=== PATIENT | female | born 1990 | race Caucasian/White ===

== ENCOUNTER 2020-01-24 18:23 | Outpatient (CLI) | payer BC, MEDICAID ==
[2020-01-24 19:08] LABS: APPEARANCE,URINE SLIGHTLY-CLOUDY; BILIRUBIN,URINE NEGATIVE (NEGATIVE); COLOR,URINE YELLOW; GLUCOSE, URINE NEGATIVE (NEGATIVE); KETONES,URINE NEGATIVE (NEGATIVE); LEUKOCYTE ESTERASE,URINE SMALL (NEGATIVE); NITRITE,URINE NEGATIVE (NEGATIVE); PROTEIN,URINE NEGATIVE (NEGATIVE); URINE SPECIFIC GRAVITY 1.023
[2020-01-24 19:44] LABS: URINE AMPHETAMINES SCREEN NEGATIVE; URINE BARBITURATES SCREEN NEGATIVE; URINE BENZODIAZEPINES SCREEN NEGATIVE; URINE COCAINE SCREEN NEGATIVE; URINE MARIJUANA (THC) SCREEN NEGATIVE; URINE METHADONE SCREEN NEGATIVE; URINE PHENCYCLIDINE SCREEN NEGATIVE
== END 2020-01-24 19:30 | disposition home or self-care (01) ==
LOC: LC 18:23
PROVIDERS: ATTEND Obstetrics & Gynecology
DX: O99.89 Other specified diseases and conditions complicating pregnancy, childbirth and the puerperium (principal); M54.9 Dorsalgia, unspecified; Z3A.35 35 weeks gestation of pregnancy
CPT/HCPCS: 59025; 80307; 81001

== ENCOUNTER 2020-02-21 16:59 | Inpatient (IN) | payer BC, MEDICAID ==
[2020-02-21 18:06] LABS: APPEARANCE,URINE SLIGHTLY-CLOUDY; BILIRUBIN,URINE NEGATIVE (NEGATIVE); COLOR,URINE YELLOW; GLUCOSE, URINE NEGATIVE (NEGATIVE); KETONES,URINE 20 mg/dL (NEGATIVE); LEUKOCYTE ESTERASE,URINE TRACE (NEGATIVE); NITRITE,URINE NEGATIVE (NEGATIVE); PROTEIN,URINE NEGATIVE (NEGATIVE); URINE SPECIFIC GRAVITY 1.013; UROBILINOGEN,URINE NEGATIVE mg/dL (<2.0)
[2020-02-21 18:38] LABS: URINE AMPHETAMINES SCREEN NEGATIVE; URINE BARBITURATES SCREEN NEGATIVE; URINE BENZODIAZEPINES SCREEN NEGATIVE; URINE COCAINE SCREEN NEGATIVE; URINE MARIJUANA (THC) SCREEN NEGATIVE; URINE METHADONE SCREEN NEGATIVE; URINE PHENCYCLIDINE SCREEN NEGATIVE
[2020-02-21] MEDS ORDERED: RINGERS SOLUTION,LACTATED 1,000 ML IV ONE (19:22)
[2020-02-21] MEDS ORDERED: PENICILLIN G POTASSIUM 5,000,000 UNIT in DEXTROSE 5%-WATER 100 ML IV ONE (19:22)
[2020-02-21] MEDS ORDERED: RINGERS SOLUTION,LACTATED 1,000 ML IV PRN (19:22)
[2020-02-21 19:49] LABS: ABSOLUTE BASOPHILS # (AUTO) 0.1 10^3/uL (0.0-0.2); ABSOLUTE LYMPHOCYTES (AUTO) 2.6 10^3/uL (0.5-4.7); ABSOLUTE MONOCYTES (AUTO) 0.7 10^3/uL (0.1-1.4); ABSOLUTE NEUT (AUTO) 7.4 10^3/uL (1.7-8.2); BASOPHILS % (AUTO) 0.5 % (0-2); EOSINOPHILS % (AUTO) 0.4 % (0-6); HEMATOCRIT 29.1 % (36.0-47.0); HEMOGLOBIN 9.8 g/dL (12.0-15.5); LYMPHOCYTES % (AUTO) 24.1 % (13-45); MEAN CORPUSCULAR HEMOGLOBIN 27.8 pg (27.0-33.4); MEAN CORPUSCULAR HGB CONC 33.7 g/dL (32.0-36.0); MEAN CORPUSCULAR VOLUME 83 fl (80-97); MONOCYTES % (AUTO) 6.2 % (3-13); PLATELET COUNT 211 10^3/uL (150-450); RED BLOOD COUNT 3.53 10^6/uL (3.72-5.28); SEGMENTED NEUTROPHILS % (AUTO) 68.8 % (42-78); TOTAL CELLS COUNTED % (AUTO) 100 %; WHITE BLOOD COUNT 10.7 10^3/uL (4.0-10.5)
[2020-02-21] MEDS ORDERED: LIDOCAINE 1% INJ-PF (10 MG/ML) 30 ML SDV ONE (20:16)
[2020-02-21] MEDS ORDERED: OXYTOCIN 10 UNIT/ML VIAL ONE (20:16)
[2020-02-21] MEDS ORDERED: MISOPROSTOL 0.2 MG TABLET ONE (20:16)
[2020-02-21] MEDS ORDERED: OXYTOCIN/0.9 % SODIUM CHLORIDE 30 UNIT/500 ML RTUINJ ONE (20:16)
[2020-02-21] MEDS ORDERED: PENICILLIN G-K 5 MILLION UNIT VIAL ONE (20:17)
--- NOTE | 2020-02-21 20:31 | Admission Physical ---
Datetime Report Generated by CPN: 02/21/2020 20:30 CURRENT ADMISSION Chief Complaint: Suspected Ruptured Membranes Indication for Induction: Not Applicable Admit Impression : Term, Intrauterine Admit Plan: Admit to Unit ALLERGIES Medication Allergies: No Medication Allergies: No Known Allergies (02/21/2020) Latex: No Latex Allergies Food Allergies: none Environmental Allergies: seasonal OBSTETRICAL HISTORY EDC: 02/27/2020 00:00 : 1 Para: 0 Term: 0 : 0 SAB: 0 IAB: 0 Ectopic: 0 Livin Cesareans: 0 VBACs: 0 Multiple Births: 0 Gestational Diabetes: No Rh Sensitization: No Incompetent Cervix: No DEBBY: No Infertility: No ART Treatment: No Uterine Anomaly: No IUGR: No Hx Previous C/S: No Macrosomia: No Hx Loss/Stillborn: No PIH: No Hx : No Placenta Previa/Abruption: No Depression/PP Depression: No PTL/PROM: No Post Hemorrhage: No Current Procedures: Ultrasound Obstetrical History Comments: G1- current SEE RECORDS Alcohol: No Marijuana : No Cocaine: No Other Illicit Drugs: No Cigarettes: Never Smoker. [id number] MEDICAL HISTORY Diabetes: No Blood Transfusion: No Pulmonary Disease (Asthma, TB): No Breast Disease: No Hypertension: No Medical Anthropologist Surgery: No Heart Disease: No Hosp/Surgery: Yes Autoimmune Disorder: No Anesthetic Complications: No Kidney Disease: Yes Abnormal Pap Smear: Yes Neuro/Epilepsy: No Psychiatric Disorders: No Other Medical Diseases: No Hepatitis/Liver Disease: No Significant Family History: No Varicosities/Phlebitis: No Trauma/Violence : No Thyroid Dysfunction: No Medical History Comments: appendix in 2009 and tonsils and adenoids at 6 y/o. ASCUS INFECTIOUS HISTORY Gonorrhea: No Genital Herpes: No Chlamydia: No Tuberculosis: No Syphilis: No Hepatitis: No HIV/AIDS Exposure: No Rash or Viral Illness: No HPV: Yes PHYSICAL EXAM General: Normal HEENT: Normal Neurologic: Normal Thyroid: Normal Heart: Normal Lungs: Normal Breast: Deferred Back: Normal Abdomen: Normal Genitourinary Exam: Normal Extremities: Normal DTRs: Normal Pelvic Type: Adequate FETUS A EGA: 39.1 PLANS FOR LABOR AND DELIVERY Labor and Delivery: None Pain Management: Medications; Epidural Feeding Preference: Breast Benefit of Breast Feed Discussed: Yes Circumcision: Yes INFORMED CONSENT Signature: with User ID: [email or web address]
[2020-02-22] MEDS ORDERED: PENICILLIN G-K 5 MILLION UNIT VIAL ONE ×2 (00:15→04:34)
[2020-02-22] MEDS: PENICILLIN G POTASSIUM 2,500,000 UNIT in DEXTROSE 5%-WATER 50 ML IV SCH ×5 (00:23→20:23)
[2020-02-22] MEDS ORDERED: OXYTOCIN/0.9 % SODIUM CHLORIDE 30 UNIT/500 ML RTUINJ IV PRN ×2 (04:54→15:42)
[2020-02-22] MEDS ORDERED: PROMETHAZINE HCL INJ 25 MG/1 ML VIAL ONE (07:34)
[2020-02-22] MEDS ORDERED: NALBUPHINE HCL INJ 10 MG/1 ML AMPULE ONE (07:34)
[2020-02-22] MEDS ORDERED: NALBUPHINE HCL INJ 10 MG/1 ML AMPULE INJ ONE (08:30)
[2020-02-22] MEDS ORDERED: PROMETHAZINE HCL INJ 25 MG/1 ML VIAL IV ONE (08:30)
[2020-02-22] MEDS ORDERED: EPHEDRINE SULFATE INJ 50 MG/1 ML AMPULE ONE (10:37)
--- NOTE | 2020-02-22 10:37 | L&D Progress Notes ---
PROGRESS NOTES Datetime Report Generated by CPN: 02/22/2020 10:37 PROGRESS NOTE Impression: Normal Progression of Labor Procedures: Sterile Vag Exam Plan: Continue Present Management; Induction; Cervical Ripening Informed Consent Obtained: Vaginal Delivery; Risks, Benefits and Alternatives Discussed Vital Signs : Reviewed Comment: cvx 4/60/-2. SROM at 1700 - clear with blood tinged fluid. PCN for GBS already. However, now 18 hours ruptured and will add gentamycin. Pt desires epidural. VAGINAL EXAM Dilatation: 4 Effacement: 60 Station: -2 LAST VAGINAL EXAM-NURSING Nursing Exam Dilitation: 1.0 Nursing Exam Effacement: 75 Nursing Exam Station: -3 MEMBRANES Membranes: Ruptured Amniotic Fluid Color: Clear FETUS A FHR - Baseline: 120 Monitoring: External US Variability: Moderate 6-25bpm Accelerations: 15X15 Decelerations: None FHR Category: Category I SIGNATURE SIGNATURE: [id number];[id number] Signature: with User ID: [email or web address]
[2020-02-22] MEDS ORDERED: ROPIVACAINE HCL 0.2% INJ/PF (2 MG/ML) 20 ML SDV ONE (10:38)
[2020-02-22] MEDS ORDERED: FENTANYL/BUPIVACAINE/NS/PF 300 MCG/150 ML RTUINJ EPI ONE (10:38)
[2020-02-22] MEDS ORDERED: GENTAMICIN SULFATE INJ 80 MG/2 ML VIAL IV ONE (10:47)
[2020-02-22] MEDS ORDERED: GENTAMICIN SULFATE 160 MG in DEXTROSE 5%-WATER 100 ML IV ONE (12:00)
[2020-02-22] MEDS ORDERED: PROMETHAZINE HCL 25 MG TABLET PO PRN (15:42)
[2020-02-22] MEDS ORDERED: ACETAMINOPHEN WITH CODEINE #3 TABLET PO PRN ×2 (15:42)
[2020-02-22] MEDS ORDERED: ACETAMINOPHEN 650 MG SUPP.RECT PR PRN (15:42)
[2020-02-22] MEDS ORDERED: PROMETHAZINE HCL 25 MG SUPP.RECT PR PRN (15:42)
[2020-02-22] MEDS ORDERED: PROMETHAZINE HCL INJ 25 MG/1 ML VIAL IV PRN (15:42)
[2020-02-22] MEDS ORDERED: DIPHENHYDRAMINE HCL 25 MG CAPSULE PO PRN (15:42)
[2020-02-22] MEDS ORDERED: MAGNESIUM HYDROXIDE SUSP 30 ML UDCUP PO PRN (15:42)
[2020-02-22] MEDS ORDERED: ZOLPIDEM TARTRATE 5 MG TABLET PO PRN (15:42)
[2020-02-22] MEDS ORDERED: DIBUCAINE 1% OINTMENT 28 GM TP PRN (15:42)
[2020-02-22] MEDS ORDERED: NA PHOS,M-B/NA PHOS,DI-BA (ADULT) 133 ML ENEMA PR PRN (15:42)
[2020-02-22] MEDS ORDERED: DIPH/PERTUSS(ACELL)/TETANUS VAC/PF 0.5 ML SYR (>=10YO) IM PRN (15:42)
[2020-02-22] MEDS ORDERED: MEASLES,MUMPS&RUBELLA VACC/PF 0.5 ML VIAL SUBCUT PRN (15:42)
[2020-02-22] MEDS ORDERED: GLYCERIN/WITCH HAZEL LEAF 1 EACH MED..WIPE TP PRN (15:42)
[2020-02-22] MEDS ORDERED: PSEUDOEPHEDRINE HCL 30 MG TABLET PO PRN (15:42)
[2020-02-22 16:10] LABS: HEMATOCRIT 28.9 % (36.0-47.0); HEMOGLOBIN 9.7 g/dL (12.0-15.5); MEAN CORPUSCULAR HEMOGLOBIN 27.4 pg (27.0-33.4); MEAN CORPUSCULAR HGB CONC 33.4 g/dL (32.0-36.0); MEAN CORPUSCULAR VOLUME 82 fl (80-97); PLATELET COUNT 214 10^3/uL (150-450); RED BLOOD COUNT 3.53 10^6/uL (3.72-5.28); RED CELL DISTRIBUTION WIDTH 14.9 % (11.5-14.0); WHITE BLOOD COUNT 17.6 10^3/uL (4.0-10.5)
[2020-02-22 16:33] LABS: ALBUMIN 3.3 g/dL (3.5-5.0); ALKALINE PHOSPHATASE 222 U/L (38-126); ANION GAP 8 (5-19); ASPARTATE AMINO TRANSFERASE 23 U/L (14-36); BILIRUBIN,DIRECT 0.4 mg/dL (0.0-0.4); BILIRUBIN,TOTAL 0.9 mg/dL (0.2-1.3); BLOOD UREA NITROGEN 7 mg/dL (7-20); CARBON DIOXIDE 21 mmol/L (22-30); CHLORIDE 107 mmol/L (98-107); GLUCOSE 78 mg/dL (75-110); TOTAL PROTEIN 5.6 g/dL (6.3-8.2)
--- NOTE | 2020-02-22 17:45 | Delivery Summary ---
Del Sum A-C Datetime Report Generated by CPN: 02/22/2020 17:45 DELIVERY PERSONNEL DELIVERY PERSONNEL: [id number] Delivery Doctor:: Jessica Chan CNM Labor and Delivery Nurse:: Jania Mckeon RNwater supervisor Nurse:: ROJELIO Mi Nursery Nurse:: xu Avila RN Nursery Nurse:: ALBERT Spangler Tech/EQUIPMENT OPERATOR/LABORER/SUPERVISOR: Marine Mclaughlin, RESIDENTIAL CARE OFFICER MATERNAL INFORMATION Delivery Anesthesia: Epidural Medications After Delivery: Pitocin 30 Units in 500ml NS/D5W Delivery QBL: 200 Maternal Complications: Prolonged Labor > 20 Hrs Provider Comments: SVDVM over intact perineum with double nuchal cord, unable to reduce, somersaulted through and then reduced after delivery. vigorous, to mothers abd for NRP. Cord clamped x 2 cut per FOB. Cord blood collected. Placenta intact via [place] with trailing membranes. Repair as above. Bleeding stable. QBL 200. LABOR SUMMARY EDC: 02/27/2020 00:00 No. Babies in Womb: 1 Attempted: No Labor Anesthesia: Epidural LABOR INFORMATION Reason for Induction: Not Applicable Onset of Labor: 02/22/2020 10:00 Complete Dilatation: 02/22/2020 13:54 Oxytocin: Augmentation Group B Beta Strep: Positive Antibiotics # of Doses: 5 Antibiotics Time of Last Dose: 02/22/2020 13:00 Name of Antibiotic Given: PCN Steroids Given: None Reason Steroids Not Administered: Not Applicable MEMBRANES Membranes Rupture Method: Spontaneous Rupture of Membranes: 02/21/2020 16:50 Length of Rupture (hr): 21.58 Amniotic Fluid Color: Clear Amniotic Fluid Amount: Small Amniotic Fluid Odor: Normal STAGES OF LABOR Stage 1 hr: 3 Stage 1 min: 54 Stage 2 hr: 0 Stage 2 min: 31 Stage 3 hr: 0 Stage 3 min: 11 Total Time in Labor hr: 4 Total Time in Labor min: 36 VAGINAL DELIVERY Episiotomy: None Laceration #1: Vaginal Laceration Extension #1: First Degree Other Laceration: Rt Labia 1st degree Laceration Repair: Yes Laceration Repair Note: 2.0 Chromic used for repair lidocaine 1% 1 interrupted stitch in vaginal area running suture up inner Rt labia CSECTION DELIVERY Primary Indication: N/A Secondary Indication: N/A CSection Incidence: N/A Labor: N/A Elective: N/A CSection Incision: N/A BABY A INFORMATION Infant Delivery Date/Time: 02/22/2020 14:25 Method of Delivery: Vaginal Nurse Controlled Delivery: No Born in Route : No : N/A Forceps: N/A Vacuum Extraction: N/A Shoulder Dystocia : No PRESENTATION/POSITION BABY A Presentation: Cephalic Cephalic Presentation: Vertex Vertex Position: Left Occipital Anterior Breech Presentation: N/A PLACENTA INFORMATION BABY A Placenta Delivery Time : 02/22/2020 14:36 Placenta Method of Delivery: Spontaneous Placenta Status: Delivered SCORES BABY A Heart Rate 1 min: >100 bpm Resp Effort 1 min: Good Cry Reflex Irritability 1 min: Cough or Sneeze or Pulls Away Muscle Tone 1 min: Active Motion Color 1 min: Body [place], Extremities Blue Resuscitation Effort 1 min: Tactile Stimulation SCORE 1 MIN: 9 Heart Rate 5 min: >100 bpm Resp Effort 5 min: Good Cry Reflex Irritability 5 min: Cough or Sneeze or Pulls Away Muscle Tone 5 min: Active Motion Color 5 min: Body [place], Extremities Blue Resuscitation Effort 5 min: Tactile Stimulation SCORE 5 MIN: 9 INFANT INFORMATION BABY A Gestational Age at Delivery: 39.2 Gestational Status: Full Term- 39- 40.6 Weeks Infant Outcome : Liveborn Infant Condition : Stable Sex: Male IDENTIFICATION BABY A Infant Verification Date/Time: 02/22/2020 14:46 ID Band Number: [id number] Mother's Name Verified: Yes Infant RN Verifying : MMobley,RN Additional Verifying Personnel: [facility],ST WEIGHT/LENGTH BABY A Infant Birthweight (gm): 3080 Infant Weight (lb): 6 Infant Weight (oz): 13 Length (in): 20.00 Length (cm): 50.80 CORD INFORMATION BABY A No. Cord Vessels: 3 Nuchal Cord : Around Neck x2, Tight Cord Blood Taken: Yes-For Eval (Mom's Blood Type - or O+) Infant Suction: Mouth; Nose ASSESSMENT BABY A Skin to Skin: Yes Infant Care By: RGrover,RN Transferred To: Remains with Mother BABY B INFORMATION : N/A SIGNATURES Assignment: Suly Salgado MD Signature: with User ID: [email or web address] : with User ID: [email or web address] : I was personally available for consultation and serving as supervising physician for the MLP.
--- NOTE | 2020-02-22 17:45 | Birth Certificate Data ---
Cert Data Datetime Report Generated by CPMichael: 02/22/2020 17:45 CERTIFICATE DATA 47a. Care: Yes (01/24/2020 18:36:Elana Renee RN) 47b. Date of First Visit: 08/16/2019 00:00 (01/24/2020 18:36:Elana Renee RN) 47c. Date of Last Visit: 02/21/2020 00:00 (01/24/2020 18:36:Elana Renee RN) 47d. Number of Visits: 9 (01/24/2020 18:36:Elana Renee RN) 48a. Number of Prev Live Births: 0 (01/24/2020 18:36:Elana Renee RN) 48b. Now Livin (01/24/2020 18:36:Jania Mckeon RN) 48c. Live Births Now : 0 (01/24/2020 18:36:QS system process) 48e. Losses: 0 (01/24/2020 18:36:Elana Renee RN) RISK FACTORS IN THIS 49a. Diabetes: No (01/24/2020 18:36:Macho Rangel RN) 49b. Hypertension: No (01/24/2020 18:36:Macho Rangel RN) 49c. Previous Births: 0 (01/24/2020 18:36:Jania Mckeon RN) 49d. Stillborns: No (01/24/2020 18:36:Macho Rangel RN) 49d. IUGR: No (01/24/2020 18:36:Macho Rangel RN) 49e. Infertility Treatment: No (01/24/2020 18:36:Macho Rangel RN) 49f. Previous Cesareans: 0 (01/24/2020 18:36:Elana Renee RN) Mother's Height 50b. Height Inches: 66 (02/22/2020 16:42:QS system process) Mother's Weight 51a. Pre- Weight (lbs): 153 (01/24/2020 18:36:Macho Rangel RN) 51b. Weight at Delivery (lbs): 172 (02/22/2020 16:42:QS system process) Infections Present/Treated 53a. Gonorrhea: No (01/24/2020 18:36:Macho Rangel RN) Results this Hospital Visit : Negative (01/24/2020 18:36:Macho Rangel RN) 53b. Syphilis: No (01/24/2020 18:36:Macho Rangel RN) Results this Hospital Visit: NONREACTIVE (02/21/2020 19:36:QS system process) 53c. Chlamydia: No (01/24/2020 18:36:Macho Rangel RN) Results this Hospital Visit: Negative (01/24/2020 18:36:Macho Rangel RN) 53d. Hepatitis B: No (01/24/2020 18:36:Macho Rangel RN) Results this Hospital Visit: Negative (01/24/2020 18:36:Macho Rangel RN) 53e. Hepatitis C: Negative (Annotations: Data stored by [facility] on behalf of user) (01/24/2020 18:36:Josephine Hinds RN) 53h. Mother Tested for HBsAG: Yes (01/24/2020 18:36:Macho Rangel RN) 53i. Date Tested: 08/16/2019 00:00 (01/24/2020 18:36:Macho Rangel RN) 53j. Test Result: Negative (01/24/2020 18:36:Macho Rangel RN) Obstetric Procedures 54a, b, c. Obstetric Procedures: Ultrasound (01/24/2020 18:36:Macho Rangel RN) Cigarette Smoking 55a. 3 Months Before Preg - Ci (01/24/2020 18:36:Macho Rangel RN) 55b. 1st Trimester of Preg- Ci (01/24/2020 18:36:Macho Rangel RN) 55c. 2nd Trimester of Preg- Ci (01/24/2020 18:36:Macho Rangel RN) 55d. 3rd Trimester of Preg- Ci (01/24/2020 18:36:Macho Rangel RN) Onset of Labor 56a. PROM >12 Hrs: 21.58 (02/21/2020 20:07:QS system process) 56b. Precipitous Labor <3 Hrs: 4 (01/24/2020 18:36:QS system process) 56c. Prolonged Labor > 20 Hrs: 4 (01/24/2020 18:36:QS system process) 57a. Induction of Labor: Augmentation (01/24/2020 18:36:Josephine Hinds RN) 57c. Non-Vertex Presentation A: Vertex (01/24/2020 18:36:Josephine Hinds RN) 57d. Steroids - Lung Mat: None (01/24/2020 18:36:Josephine Hinds RN) 57d. Steroids - Lung Mat: Not Applicable (01/24/2020 18:36:oJsephine Hinds RN) 57e. Antibiotics During Labor: 02/22/2020 13:00 (01/24/2020 18:36:Josephine Hinds RN) 57f. Mat [place] or Temp >100.4: 98.1 (01/24/2020 18:36:Josephine Hinds RN) 57g. Moderate/Heavy Meconium: Clear (02/21/2020 20:07:Macho Rangel RN) 57h. Intolerance of Labor: N/A (01/24/2020 18:36:Jania Mckeon RN) : N/A (01/24/2020 18:36:Jania Mckeon RN) 57i. Epidural/Spinal Anesthesia: Epidural (01/24/2020 18:36:Josephine Hinds RN) Method of Delivery 58a. Forceps - Unsuccessful A: N/A (01/24/2020 18:36:Josephine Hinds RN) 58b. Vacuum - Unsuccessful A: N/A (01/24/2020 18:36:Josephine Hinds RN) 58c. Presentation at 58c. Presentation at - A : Vertex (01/24/2020 18:36:Josephine Hinds RN) 58c. Presentation at - A : N/A (01/24/2020 18:36:Josephine Hinds RN) 58c. Presentation at - A : Cephalic (02/21/2020 17:49:Josephine Hinds RN) Final Route and Method of Del 58d. Baby A Route/Delivery: Vaginal (02/22/2020 14:25:Jania Mckeon RN) 58e. Trial of Labor Attempted: No (01/24/2020 18:36:Josephine Hinds RN) 58e. Trial of Labor Attempted A: N/A (01/24/2020 18:36:Josephine Hinds RN) 58e. Trial of Labor Attempted B: N/A (01/24/2020 18:36:Josephine Hinds RN) Maternal Morbidity 59b. 3rd or 4th Degree Lacs: Vaginal (01/24/2020 18:36:Jania Mckeon RN) 59b. 3rd or 4th Degree Lacs: First Degree (01/24/2020 18:36:Jania Mckeon RN) 59b. 3rd or 4th Degree Lacs: Rt Labia 1st degree (01/24/2020 18:36:Jessica Chan CNDaniel) Birthweight Baby A: 3080 (01/24/2020 18:36:Dorothy Anand RN) 60a. Pounds : 6 (01/24/2020 18:36:QS system process) 60b. Ounces: 13 (01/24/2020 18:36:QS system process) 61. GA at Delivery Baby A: 39.2 (01/24/2020 18:36:Josephine Hinds RN) : Full Term- 39- 40.6 Weeks (01/24/2020 18:36:QS system process) 62a. 5 Minute Baby A: 9 (01/24/2020 18:36:QS system process)
[2020-02-22] MEDS: FERROUS SULFATE 325 MG TABLET PO SCH (17:54)
[2020-02-22] MEDS: DOCUSATE SODIUM 100 MG CAPSULE PO SCH (17:54)
[2020-02-22] MEDS ORDERED: AMPICILLIN SOD INJ 2 GM VIAL IV SCH ×2 (18:00)
[2020-02-22] MEDS: AMPICILLIN SODIUM 2 GM in NORMAL SALINE 100 ML IV SCH (18:39)
[2020-02-22] MEDS ORDERED: GENTAMICIN SULFATE INJ 80 MG/2 ML VIAL IV SCH (20:00)
[2020-02-22] MEDS: GENTAMICIN SULFATE 120 MG in DEXTROSE 5%-WATER 100 ML IV SCH (20:24)
[2020-02-22] MEDS: IBUPROFEN 800 MG TABLET PO SCH (22:17)
[2020-02-22] MEDS: FAMOTIDINE 20 MG TABLET PO SCH (22:18)
[2020-02-23] MEDS: AMPICILLIN SODIUM 2 GM in NORMAL SALINE 100 ML IV SCH ×3 (00:05→13:48)
[2020-02-23] MEDS: GENTAMICIN SULFATE 120 MG in DEXTROSE 5%-WATER 100 ML IV SCH ×2 (03:39→13:48)
[2020-02-23] MEDS: IBUPROFEN 800 MG TABLET PO SCH ×3 (05:18→21:28)
[2020-02-23 06:23] LABS: HEMATOCRIT 27.7 % (36.0-47.0); HEMOGLOBIN 9.3 g/dL (12.0-15.5); MEAN CORPUSCULAR HEMOGLOBIN 27.5 pg (27.0-33.4); MEAN CORPUSCULAR HGB CONC 33.8 g/dL (32.0-36.0); MEAN CORPUSCULAR VOLUME 81 fl (80-97); PLATELET COUNT 214 10^3/uL (150-450); RED CELL DISTRIBUTION WIDTH 15.1 % (11.5-14.0); WHITE BLOOD COUNT 12.1 10^3/uL (4.0-10.5)
[2020-02-23] MEDS: SENNOSIDES/DOCUSATE 8.6-50 MG 1 EACH TABLET PO SCH (10:30)
[2020-02-23] MEDS: DOCUSATE SODIUM 100 MG CAPSULE PO SCH ×2 (10:30→18:48)
[2020-02-23] MEDS: BENZOCAINE/MENTHOL AEROSOL SPRAY 56 ML TOP PRN (10:30)
[2020-02-23] MEDS: PRENATAL VITAMIN W DHA CAPSULE PO SCH (10:30)
[2020-02-23] MEDS: FAMOTIDINE 20 MG TABLET PO SCH ×2 (10:30→21:28)
[2020-02-23] MEDS: FERROUS SULFATE 325 MG TABLET PO SCH ×2 (10:31→18:48)
--- NOTE | 2020-02-23 11:21 | PDOC PROGRESS REPORT ---
Subjective-OB Progress Note for:: 02/23/20 Subjective: Pt doing well, reports light bleeding, reg diet and no difficulty voiding. No concerns. Physical Exam (OB) Vital Signs: Temp Pulse Resp BP Pulse Ox 97.6 F 90 18 125/81 100 02/23/20 07:24 02/23/20 07:24 02/23/20 07:24 02/23/20 07:24 02/23/20 07:24 Intake & Output 02/22/20 02/23/20 02/24/20 06:59 06:59 06:59 Intake Total 700 Balance 700 Weight 78.2 kg - Maternal Morbidity 59. Maternal Morbidity (serious complications experinced by the mother associated with labor and delivery: None of the above - Lochia Lochia Amount: Small 10-25 ml Lochia Color: Rubra/Red - Abdomen Description: Soft, Round Hernia Present: No Fundal Description: Firm, Midline Fundal Height: u/u - u/2 Objective-Diagnostic Laboratory: 02/23/20 06:15 02/22/20 16:00 02/22/20 02/22/20 02/23/20 16:00 16:00 06:15 WBC 17.6 H 12.1 H RBC 3.53 L 3.40 L Hgb 9.7 L 9.3 L Hct 28.9 L 27.7 L MCV 82 81 MCH 27.4 27.5 MCHC 33.4 33.8 RDW 14.9 H 15.1 H Plt Count 214 214 Sodium 135.9 L Potassium 4.0 Chloride 107 Carbon Dioxide 21 L Anion Gap 8 BUN 7 Creatinine 0.62 Est GFR ( Amer) > 60 Glucose 78 Calcium 9.0 Total Bilirubin 0.9 AST 23 Alkaline Phosphatase 222 H Total Protein 5.6 L Albumin 3.3 L Assessment and Plan(PN) - Assessment and Plan (1) Carrier of group B Streptococcus Is this a current diagnosis for this admission?: Yes (2) Obstetrical laceration, first degree Is this a current diagnosis for this admission?: Yes (3) Premature rupture of membranes Qualifiers: PROM onset of labor timing: onset of labor within 24 hours of rupture Is this a current diagnosis for this admission?: Yes (4) Prolonged rupture of membranes Is this a current diagnosis for this admission?: Yes (5) Vaginal delivery Is this a current diagnosis for this admission?: Yes - Time Spent with Patient Time with patient: Less than 15 minutes Medications reviewed and adjusted accordingly: Yes - Disposition Anticipated Discharge Disposition: Home, Self Care Anticipated Discharge Timeframe: within 24 hours
[2020-02-24] MEDS: IBUPROFEN 800 MG TABLET PO SCH (06:32)
[2020-02-24] MEDS: BENZOCAINE/MENTHOL AEROSOL SPRAY 56 ML TOP PRN (09:30)
[2020-02-24] MEDS: DOCUSATE SODIUM 100 MG CAPSULE PO SCH (09:32)
[2020-02-24] MEDS: FAMOTIDINE 20 MG TABLET PO SCH (09:32)
[2020-02-24] MEDS: PRENATAL VITAMIN W DHA CAPSULE PO SCH (09:32)
[2020-02-24] MEDS: SENNOSIDES/DOCUSATE 8.6-50 MG 1 EACH TABLET PO SCH (09:32)
--- NOTE | 2020-02-24 11:38 | PDOC DISCHARGE SUMMARY ---
Impression - Admit/DC Date/PCP Admission Date/Primary Care Provider: 02/21/20 19:08 ZOE GREER MD Discharge Date: 02/24/20 - Discharge Diagnosis (1) Carrier of group B Streptococcus Is this a current diagnosis for this admission?: Yes (2) Obstetrical laceration, first degree Is this a current diagnosis for this admission?: Yes (3) Premature rupture of membranes Is this a current diagnosis for this admission?: Yes (4) Prolonged rupture of membranes Is this a current diagnosis for this admission?: Yes (5) Vaginal delivery Is this a current diagnosis for this admission?: Yes - Additional Information Resuscitation Status: Full Code Discharge Diet: Regular Discharge Activity: Balance Activity w/Rest, Pelvic Rest Referrals: ZOE GREER MD [Primary Care Provider] - Home Medications: Ferrous Sulfate [Feosol 325 mg Tablet] 1 tab PO DAILY 01/24/20 Pnv 102/Iron/Folate 1/Dss/Dha [Vitafol Fe+ Docusate Combo Pck] 1 each PO DAILY 01/24/20 HPI Gestational Age: 39.2 Reason(s) for Admission: Onset of Labor, PROM, Group B Strep Positive Procedures: NST Intrapartum Procedure(s): Spontaneous Vaginal Delivery Complication(s): Laceration-Vaginal, Laceration-Labial Laceration-Degree: 1st Hospital Course 59. Maternal Morbidity (serious complications experinced by the mother associated with labor and delivery: None of the above Results Laboratory Results: WBC 12.1 10^3/uL (4.0-10.5) H 02/23/20 06:15 RBC 3.40 10^6/uL (3.72-5.28) L 02/23/20 06:15 Hgb 9.3 g/dL (12.0-15.5) L 02/23/20 06:15 Hct 27.7 % (36.0-47.0) L 02/23/20 06:15 MCV 81 fl (80-97) 02/23/20 06:15 MCH 27.5 pg (27.0-33.4) 02/23/20 06:15 MCHC 33.8 g/dL (32.0-36.0) 02/23/20 06:15 RDW 15.1 % (11.5-14.0) H 02/23/20 06:15 Plt Count 214 10^3/uL (150-450) 02/23/20 06:15 Lymph % (Auto) 24.1 % (13-45) 02/21/20 19:36 [place] % (Auto) 6.2 % (3-13) 02/21/20 19:36 Eos % (Auto) 0.4 % (0-6) 02/21/20 19:36 Baso % (Auto) 0.5 % (0-2) 02/21/20 19:36 Absolute Neuts (auto) 7.4 10^3/uL (1.7-8.2) 02/21/20 19:36 Absolute Lymphs (auto) 2.6 10^3/uL (0.5-4.7) 02/21/20 19:36 Absolute Monos (auto) 0.7 10^3/uL (0.1-1.4) 02/21/20 19:36 Absolute Eos (auto) 0.0 10^3/uL (0.0-0.6) 02/21/20 19:36 Absolute Basos (auto) 0.1 10^3/uL (0.0-0.2) 02/21/20 19:36 Seg Neutrophils % 68.8 % (42-78) 02/21/20 19:36 Sodium 135.9 mmol/L (137-145) L 02/22/20 16:00 Potassium 4.0 mmol/L (3.6-5.0) 02/22/20 16:00 Chloride 107 mmol/L (98-107) 02/22/20 16:00 Carbon Dioxide 21 mmol/L (22-30) L 02/22/20 16:00 Anion Gap 8 (5-19) 02/22/20 16:00 BUN 7 mg/dL (7-20) 02/22/20 16:00 Creatinine 0.62 mg/dL (0.52-1.25) 02/22/20 16:00 Est GFR ( Amer) > 60 (>60) 02/22/20 16:00 Est GFR (MDRD) Non-Af > 60 (>60) 02/22/20 16:00 Glucose 78 mg/dL (75-110) 02/22/20 16:00 Calcium 9.0 mg/dL (8.4-10.2) 02/22/20 16:00 Total Bilirubin 0.9 mg/dL (0.2-1.3) 02/22/20 16:00 Direct Bilirubin 0.4 mg/dL (0.0-0.4) 02/22/20 16:00 Neonat Total Bilirubin Not Reportable 02/22/20 16:00 Neonat Direct Bilirubin Not Reportable 02/22/20 16:00 Neonat Indirect Bili Not Reportable 02/22/20 16:00 AST 23 U/L (14-36) 02/22/20 16:00 ALT 12 U/L (<35) 02/22/20 16:00 Alkaline Phosphatase 222 U/L (38-126) H 02/22/20 16:00 Total Protein 5.6 g/dL (6.3-8.2) L 02/22/20 16:00 Albumin 3.3 g/dL (3.5-5.0) L 02/22/20 16:00 Urine Color YELLOW 02/21/20 17:30 Urine Appearance SLIGHTLY-CLOUDY 02/21/20 17:30 Urine pH 6.0 (5.0-9.0) 02/21/20 17:30 Ur Specific [place] 1.013 02/21/20 17:30 Urine Protein NEGATIVE mg/dL (NEGATIVE) 02/21/20 17:30 Urine Glucose (UA) NEGATIVE mg/dL (NEGATIVE) 02/21/20 17:30 Urine Ketones 20 mg/dL (NEGATIVE) H 02/21/20 17:30 Urine Blood SMALL (NEGATIVE) H 02/21/20 17:30 Urine Nitrite NEGATIVE (NEGATIVE) 02/21/20 17:30 Urine Bilirubin NEGATIVE (NEGATIVE) 02/21/20 17:30 Urine Urobilinogen NEGATIVE mg/dL (<2.0) 02/21/20 17:30 Ur Leukocyte Esterase TRACE (NEGATIVE) H 02/21/20 17:30 Urine Ascorbic Acid NEGATIVE (NEGATIVE) 02/21/20 17:30 Membranes Rupture POSITIVE (NEGATIVE) H 02/21/20 17:41 Urine Opiates Screen NEGATIVE 02/21/20 17:30 Urine Methadone Screen NEGATIVE 02/21/20 17:30 Ur Barbiturates Screen NEGATIVE 02/21/20 17:30 Ur Phencyclidine Scrn NEGATIVE 09/10/20 17:30 Ur Amphetamines Screen NEGATIVE 02/21/20 17:30 U Benzodiazepines Scrn NEGATIVE 02/21/20 17:30 Urine Cocaine Screen NEGATIVE 02/21/20 17:30 U Marijuana (THC) Screen NEGATIVE 02/21/20 17:30 RPR NONREACTIVE (NONREACTIVE) 02/21/20 19:36 Blood Type O POSITIVE 02/21/20 19:36 Antibody Screen NEGATIVE 02/21/20 19:36 Plan Plan of Treatment: f/u at [facility] 4 wks Time Spent: Less than 30 Minutes
[2020-02-24 14:26] VITALS: BP 133/80
== END 2020-02-24 15:01 | disposition home or self-care (01) | DRG 807 ==
LOC: LC 16:59 → LR 19:08 → 2S 02-22 16:40
PROVIDERS: ADMIT Obstetrics & Gynecology Gynecology; ATTEND Obstetrics & Gynecology Gynecology
PROC: 10E0XZZ Delivery of Products of Conception, External Approach (ICD-10-PCS; principal; 2020-02-22)
PROC: 0HQ9XZZ Repair Perineum Skin, External Approach (ICD-10-PCS; 2020-02-22)
DX: O99.824 Streptococcus B carrier state complicating childbirth (principal); Z37.0 Single live birth; O69.1XX0 Labor and delivery complicated by cord around neck, with compression, not applicable or unspecified; O71.4 Obstetric high vaginal laceration alone; O63.9 Long labor, unspecified; Z3A.39 39 weeks gestation of pregnancy
CPT/HCPCS: 36415; 80053; 80307; 81005; 84112; 85025; 85027; 86592; 86850; 86900; 86901; 94760; J0290; J1580; J2300; J2540; J2550; J2590; J2795; J3010; J3490; J7050; J7060